=== PATIENT | male | born 1995 | race Caucasian/White ===

== ENCOUNTER 2018-11-10 13:02 | Emergency (ER) | payer SELFPAY ==
[~2018-11-10] VITALS: Ht 188 cm; Wt 77.2 kg
[2018-11-10] MEDS ORDERED: KETOROLAC 30 MG/1 ML IM ONE (13:30)
[2018-11-10] MEDS ORDERED: PROCHLORPERAZINE 5 MG/ML, 2ML IM ONE (13:30)
[2018-11-10] MEDS ORDERED: DIPHENHYDRAMINE 25 MG CAPSULE PO ONE (13:30)
[2018-11-10 13:35] LABS: BASOPHILS # (AUTO) 0.05 x10^3/uL (0-0.1); BASOPHILS % (AUTO) 1 % (0-1); EOSINOPHILS # (AUTO) 0.14 x10^3/uL (0-0.4); EOSINOPHILS % (AUTO) 2 % (1-7); LYMPHOCYTES # (AUTO) 2.61 x10^3/uL (1-3.4); LYMPHOCYTES % (AUTO) 39 % (22-44); MD NO; MEAN CORPUSCULAR HEMOGLOBIN 32.7 pg (27.5-34.5); MEAN CORPUSCULAR HGB CONC 33.7 g/dL (33.2-36.2); MONOCYTES % (AUTO) 9 % (2-9); NEUTROPHILS # (AUTO) 3.29 x10^3/uL (1.8-6.8); NEUTROPHILS % (AUTO) 49 % (42-75); PLATELET COUNT 213 x10^3/uL (130-400); RED BLOOD COUNT 5.24 x10^6/uL (4.38-5.82)
[2018-11-10 13:44] LABS: ANION GAP 3 mmol/L (5-15); CALCIUM 9.3 mg/dL (8.5-10.1); CHLORIDE 111 mmol/L (98-107)
[2018-11-10 13:45] LABS: CREATININE 1.12 mg/dL (0.7-1.3)
[2018-11-10] MEDS ORDERED: KETOROLAC 30 MG/1 ML ONE (14:07)
[2018-11-10] MEDS ORDERED: DIPHENHYDRAMINE 25 MG CAPSULE ONE (14:07)
[2018-11-10] MEDS ORDERED: PROCHLORPERAZINE 5 MG/ML, 2ML ONE (14:07)
--- NOTE | 2018-11-10 14:18 | NUR ---
PT ESCORTED BY RN TO ROOM, DRESSED IN GOWN. 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 PT HAS HX OF COMPLEX MIGRAINES AND REPORTS SIMILAR SYMPTOMS PREVIOUSLY. CALL LIGHT GIVEN TO PATIENT, AND SIDERAIL X [address].
--- NOTE | 2018-11-10 14:22 | NUR ---
PT MEDICATED PER MD ORDERS. TOLERATED WELL, WILL CONTINUE TO MONITOR FOR SYMPTOM RELIEF.
[2018-11-10 14:41] VITALS: BP 113/60
--- NOTE | 2018-11-10 15:24 | NUR ---
PT NOT IN ROOM FOR D/C INSTRUCTIONS
== END 2018-11-10 15:26 | disposition home or self-care (01) ==
LOC: ED 15:20
DX: G43.019 Migraine without aura, intractable, without status migrainosus (principal); Z87.891 Personal history of nicotine dependence
CPT/HCPCS: 36415; 80048; 85025; 96372; 99283; J0780; J1885; Q0163